=== PATIENT | male | born 1995 | race Hispanic/Latino ===

== ENCOUNTER 2024-06-18 20:01 | Emergency (ER) | payer OTHER, SELFPAY ==
[2024-06-18] MEDS ORDERED: DIPHENHYDRAMINE 50 MG/ML VIAL ONE (20:36)
[2024-06-18] MEDS ORDERED: LORazepam 2 MG/ML VIAL ONE (20:36)
[2024-06-18] MEDS ORDERED: HALOPERIDOL LACT 5 MG/ML INJ ONE (20:36)
[2024-06-18] MEDS ORDERED: NA CHLORIDE 0.9% 1,000 ML ONE ×2 (20:37→22:33)
[2024-06-18 20:47] LABS: Absolute Basophils 0.1 K/uL (0-0.5); Absolute Eosinophils 0.3 K/uL (0-0.5); Absolute Lymphocytes (CBC) 2.3 K/uL (0.7-4.9); Absolute Monocytes 0.6 K/uL (0.1-1.3); Absolute Neutrophil 10.6 K/uL (1.8-8.0); Basophils % 0.4 % (0-1.3); Eosinophils % 2.2 % (0-4.4); Hematocrit 45.8 % (39.6-49.0); Hemoglobin 14.7 g/dL (13.6-17.9); Lymphocytes % 16.6 % (15.3-44.8); MCH 22.2 pg (27.0-35.0); MCHC 32.1 g/dL (32.0-36.0); MCV 69.3 fL (80-100); MPV 10.6 fL (7.6-11.3); Monocytes % 4.4 % (3.3-12.3); Neutrophils % 76.4 % (41.7-73.7); Nucleated Red Blood Cells % 0.1 % (0-0); Platelets 282 thou/uL (152-406); RBC Red Blood Cell Count 6.61 M/uL (4.33-5.43); Red Cell Distribution Width 17.5 % (12.1-15.2)
[2024-06-18 20:51] LABS: PT Prothrombin Time 12.3 SECONDS (9.4-12.5); PTT, Activated Partial Thromb 27.9 SECONDS (24.3-36.9); Protime INR 1.1
[2024-06-18 21:10] LABS: Blood Morphology Comment NOTED (NOT SEEN); Microcytosis 1+; Ovalocytes 1+; Platelet Estimate ADEQ; White Blood Cell Scan OK (OK)
[2024-06-18 21:23] LABS: ALT/SGPT 44 U/L (16-61); AST/SGOT 22 U/L (15-37); Albumin/Globulin Ratio 0.9 (1.1-1.8); Alkaline Phosphatase 155 U/L (45-117); Anion Gap 19.3 mEq/L (5.0-15.0); BUN Blood Urea Nitrogen 15 mg/dL (7-18); Bicarbonate 19 mEq/L (21-32); Bilirubin Direct 0.4 mg/dL (0-0.2); Bilirubin Indirect, Calculated 1.1 mg/dL (0.2-0.8); Bilirubin Total 1.5 mg/dL (0.2-1.0); Globulin 4.6 g/dL (2.3-3.5); Glomerular Filtration Rate 62 ml/min (=/>90); Glucose Level 147 mg/dL (74-106); Potassium 3.3 mEq/L (3.5-5.1); Protein, Total 8.6 g/dL (6.4-8.2); Sodium Level 135 mEq/L (136-145)
[2024-06-19 01:02] LABS: Anion Gap 12.8 mEq/L (5.0-15.0); Potassium 3.8 mEq/L (3.5-5.1)
--- NOTE | 2024-06-19 01:07 | EDPHYS ---
Physician Documentation [facility] Name: Javi Nesbitt Age: 29 yrs Sex: Male : 1995 Arrival Date: 06/18/2024 Time: 20:01 Bed 18 Private MD: ED Physician Cr Perez HPI: 06/18 20:06 This 29 yrs old Male presents to ER via Unassigned with complaints of Psych Problem. ec2 20:06 Patient arrives today for evaluation of psychiatric issues. Patient brought in by PD ec2 under an RICHAR due to concern for deteriorating mental status and inability to care for self and hallucinations. Patient has been having some personal struggles at home for the past year and has not been medicating with his psychiatric medications for his diagnosed bipolar disease. With reports with concern for potential for self-harm.. Historical: - Allergies: 21:01 No Known Allergies; lg3 - Home Meds: 21:01 None [Active]; lg3 - PMHx: 21:01 Anxiety; Depressive disorder; lg3 - PSHx: 21:01 None; lg3 - Immunization history:: Adult Immunizations up to date. - Infectious Disease History:: Denies. - Social history:: Smoking status: Patient denies any tobacco usage or history of. Patient/guardian denies using alcohol, street drugs. ROS: 20:06 Constitutional: as per hpi ec2 Exam: 20:11 Constitutional: GEN: NAD Head: atraumatic Eyes: EOMI Ears: External ears are ec2 normal. CV: Tachycardia LUNGS: no respiratory distress ABD: non-distended SKIN: no evidence of rashes MSK: no evidence of trauma. Psych: Cooperative individual who is anxious and otherwise seems preoccupied Vital Signs: 20:01 BP 124 / 69; Pulse 149; Resp 19 S; Temp 98.2(O); Pulse Ox 100% on R/A; Weight 113.4 kg lg3 (R); Height 6 ft. 4 in. (R); Pain 0/10; 20:03 BP 124 / 69; Pulse 134; Pulse Ox 99% ; ty 20:30 BP 138 / 87; Pulse 98; Resp 16; Pulse Ox 98% on R/A; lg3 21:00 BP 116 / 61; Pulse 89; Resp 16; Pulse Ox 98% on R/A; lg3 21:30 BP 131 / 80; Pulse 89; Resp 16; Pulse Ox 99% on R/A; lg3 22:00 BP 120 / 96; Pulse 79; Resp 17; Pulse Ox 97% on R/A; lg3 22:30 BP 103 / 60; Pulse 83; Resp 17; Pulse Ox 98% on R/A; lg3 23:00 BP 117 / 98; Pulse 101; Resp 17; Pulse Ox 98% on R/A; oe 06/19 00:00 BP 108 / 94; Pulse 112; Resp 18; Pulse Ox 98% on R/A; oe 01:00 BP 133 / 83; Pulse 98; Resp 17; Pulse Ox 98% on R/A; oe 02:00 BP 150 / 76; Pulse 67; Resp 17; Pulse Ox 98% on R/A; oe 04:00 BP 153 / 86; Pulse 77; Resp 16; Pulse Ox 100% on R/A; oe 04:35 BP 153 / 86; ec2 06/18 20:01 Body Mass Index 30.43 (113.40 kg, 193.04 cm) lg3 06/18 20:01 Pain Scale: Adult lg3 MDM: 06/18 20:02 Medical Screening Exam initiated ec2 20:07 Data reviewed: vital signs, nurses notes. ED course: Patient arrives today for ec2 psychiatric disease. Examination yields a cooperative individual who is slightly anxious. Will obtain a psychiatric evaluation. Offered the patient medications to help with his delusions as well as his anxiety.. 20:51 ED course: EKG independently reviewed and interpreted by me, shows sinus tachycardia, ec2 rate of 125, intervals are nonactionable. No acute ischemia identified.. 06/19 01:05 ED course: Repeat labs reassuring. Will transfer to psychiatric facility.. ec2 04:02 ED course: [facility] evaluated pt as well, recs for inpt admission, agree w/ this plan ec2 of action. will attempt transfer. 07:31 Differential diagnosis: drug withdrawal. acute psychotic break, psychosis secondary to ms3 non-compliance. Transition of care: Care assumed from Willis Ayon MD. ED course: Patient care and report received from Dr. Ayon at 7 AM. Patient has been evaluated by [facility]. Patient currently awaiting bed placement. Patient presenting to the emergency department for hallucinations and paranoia. On evaluation patient laying comfortably in bed without complaints and easily arousable.. 06/18 20:03 Order name: Acetaminophen; Complete Time: 21:28 ec2 06/18 20:03 Order name: Basic Metabolic Panel; Complete Time: 21:28 ec2 06/18 20:03 Order name: CBC with Diff; Complete Time: 21:22 ec2 06/18 20:03 Order name: ETOH Level; Complete Time: 21:22 ec2 06/18 20:03 Order name: Hepatic Function; Complete Time: 21:28 ec2 06/18 20:03 Order name: PT-INR; Complete Time: 21:22 ec2 06/18 20:03 Order name: Ptt, Activated; Complete Time: 21: ec2 06/18 20:03 Order name: Salicylate; Complete Time: 21:22 ec2 06/18 20:52 Order name: CBC Smear Scan; Complete Time: 21:22 EDMS 06/18 23:14 Order name: CK; Complete Time: 01:05 ec2 06/18 23:14 Order name: BMP; Complete Time: 01:05 ec2 06/18 20:03 Order name: EKG; Complete Time: 20:03 ec2 06/18 20:03 Order name: EKG - Nurse/Tech; Complete Time: 22:45 ec2 06/18 20:03 Order name: IV Saline Lock; Complete Time: 22:45 ec2 06/18 20:03 Order name: Labs collected and sent; Complete Time: 22:45 ec2 06/18 20:03 Order name: Suicide Precautions; Complete Time: 22:45 ec2 06/18 20:03 Order name: Suicide Screening ([place]); Complete Time: 22:45 ec2 06/18 21:58 Order name: Vital Signs; Complete Time: 22:48 ec2 06/18 23:14 Order name: Misc. Order: repeat bmp, and ck level; Complete Time: 00:31 ec2 Administered Medications: 06/18 20:40 Drug: Haloperidol IVP 5 mg IVP once Route: IVP; Site: right antecubital; lg3 22:48 Follow up: Response: No adverse reaction; Anxiety decreased; RASS: Drowsy (-1) lg3 20:40 Drug: diphenhydrAMINE IVP 50 mg IVP once Route: IVP; Site: right antecubital; lg3 22:48 Follow up: Response: No adverse reaction; RASS: Drowsy (-1) lg3 20:40 Drug: Ativan IVP 2 mg IVP once Route: IVP; Site: right antecubital; lg3 22:48 Follow up: Response: No adverse reaction; Marked relief of symptoms; Anxiety decreased; lg3 RASS: Drowsy (-1) 20:40 Drug: NS 0.9% IV 1000 ml IV at 1000 ml once; to be given as a bolus over 60 minutes lg3 Route: IV; Rate: 1000 ml; Site: right antecubital; 21:50 Follow up: Response: No adverse reaction; IV Status: Completed infusion; IV Intake: lg3 1000ml 22:45 Drug: NS 0.9% IV 1000 ml IV at 1000 ml once; to be given as a bolus over 60 minutes bm8 Route: IV; Rate: 1000 ml; Site: right antecubital; 06/19 00:29 Follow up: Response: No adverse reaction; IV Status: Completed infusion; IV Intake: lg3 1000ml Disposition Summary: 06/19/24 01:06 Transfer Ordered Notes: Transfer Location: [facility] Facility ec2 Reason: Higher level of care ec2 Condition: Stable ec2 Problem: an acute exacerbation ec2 Symptoms: are unchanged ec2 Accepting Physician: transferring doc(06/19/24 12:43) ld1 Diagnosis - Visual hallucinations ec2 - Paranoia ec2 - Impulsiveness ec2 Forms: - Medication Reconciliation Form ec2 - SBAR form ec2 Signatures: Dispatcher [employer] EDDebo Vaz RN RN lg3 Cr Perez DO DO ms3 Julissa Perez RN RN ld1 Willis Ayon MD MD ec2 Dick Bruce RN RN bm8 Corrections: (The following items were deleted from the chart) 06/18 20:03 20:03 ACETAMINOPHEN+C.LAB.BRZ ordered. EDMS EDMS 20:03 20:03 BASIC METABOLIC PANEL+C.LAB.BRZ ordered. EDMS EDMS 20:03 20:03 CBC+H.LAB.BRZ ordered. EDMS EDMS 20:03 20:03 ETHANOL+C.LAB.BRZ ordered. EDMS EDMS 20:03 20:03 HEPATIC FUNCTION+C.LAB.BRZ ordered. EDMS EDMS 20:03 20:03 PROTIME (+INR)+COAG.LAB.BRZ ordered. EDMS EDMS 20:03 20:03 PTT, ACTIVATED+COAG.LAB.BRZ ordered. EDMS EDMS 20:03 20:03 SALICYLATE+C.LAB.BRZ ordered. EDMS EDMS 20:03 20:03 Urinalysis+U.LAB.BRZ ordered. EDMS EDMS 20:03 20:03 URINE DRUG SCREEN+UC.LAB.BRZ ordered. EDMS EDMS 23:15 23:14 CREATINE PHOSPHOKINASE+C.LAB.BRZ ordered. EDMS EDMS 23:15 23:14 BASIC METABOLIC PANEL+C.LAB.BRZ ordered. EDMS EDMS 06/19 12:43 01:06 transferring doc ec2 ld1
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
[2024-06-20 16:47] VITALS: BP 153/86; TEMP 98.2; O2SAT 100
--- NOTE | 2024-06-22 12:09 | EKG ---
Test Date: 2024-06-18 Test Time: 20:48:25 Conference Assistant: JESE MEASUREMENT RESULTS: Intervals: Rate: 125 VT: 144 QRSD: 74 QT: 328 QTc: 473 Raymond: P: 32 VT: 144 QRS: 72 T: 31 INTERPRETIVE STATEMENTS: Sinus tachycardia Cannot rule out Anterior infarct, age undetermined Abnormal ECG No previous ECG available for comparison Electronically Signed On 06-22-24 12:07:37 PRICING MANAGER by Carlos Lindsey
== END 2024-06-19 12:43 ==
LOC: ER 20:01
DX: F22 Delusional disorders (principal); R45.87 Impulsiveness
CPT/HCPCS: 36415; 80048; 80076; 80143; 80179; 82077; 82550; 85025; 85610; 85730; 93005; 96361; 96374; 96375; 99285; J1200; J1630; J7030